=== PATIENT | female | born 1990 | race Caucasian/White ===

== ENCOUNTER 2019-06-14 13:27 | Outpatient (CLI) | payer BC, SELFPAY ==
--- NOTE | 2019-06-14 13:44 | XR_ITS ---
WS: [id number] RIGHT HAND: 3 VIEW(S) TECHNIQUE: PA, oblique and lateral. HISTORY: Medial RIGHT hand pain. COMPARISON: 02/10/2010 No acute fracture or dislocation. No soft tissue or bone abnormality. XR/XR hand RT min 3V* [id number] IMPRESSION: Normal RIGHT hand.
== END 2019-06-14 13:28 | disposition home or self-care (01) ==
LOC: RADWPI 13:36
PROVIDERS: PCP Family Medicine; Visit Provider Family Medicine
DX: M79.641 Pain in right hand (principal)
CPT/HCPCS: 73130

== ENCOUNTER 2019-08-11 09:39 | Outpatient (CLI) | payer BC, SELFPAY ==
--- NOTE | 2019-08-11 09:47 | XR_ITS ---
WS: [id number] LEFT HIP HISTORY: LEFT HIP PAIN COMPARISON: None available. LEFT hip: No acute fracture or dislocation. No displacement. Soft tissues are normal. Visualized LEFT SI joint is normal. XR/XR hip LT 2-3V wo/w pel* [id number] IMPRESSION: 1. No hip fracture. 2. Normal LEFT hip.
--- NOTE | 2019-08-11 09:47 | XR_ITS ---
WS: [id number] RIGHT ELBOW: 2 VIEW(S) TECHNIQUE: AP and lateral. HISTORY: ELBOW PAIN, RIGHT COMPARISON: None available. No acute fractures or dislocation. No joint effusion. No soft tissue abnormality. XR/XR elbow RT 2V [id number] IMPRESSION: Normal RIGHT elbow.
== END 2019-08-11 09:40 | disposition home or self-care (01) ==
PROVIDERS: Family Provider Family Medicine; PCP Family Medicine; Visit Provider Family Medicine
DX: M25.552 Pain in left hip (principal); M25.521 Pain in right elbow
CPT/HCPCS: 73070; 73502

== ENCOUNTER → 2019-08-24 10:01 | Outpatient (BNVA) | payer BC, SELFPAY | PROVIDERS: Family Provider Family Medicine; PCP Family Medicine; Visit Provider Obstetrics & Gynecology | DX: Z12.4 Encounter for screening for malignant neoplasm of cervix (principal) | CPT/HCPCS: 88175 ==

== ENCOUNTER 2019-08-30 09:33 | Outpatient (RCR) | payer BC, SELFPAY | END 2019-09-06 23:59 | disposition home or self-care (01) | LOC: SPT 09:33 | PROVIDERS: PCP Family Medicine; Visit Provider Family Medicine | DX: M25.552 Pain in left hip (principal); M25.521 Pain in right elbow | CPT/HCPCS: 97033; 97110; 97162 ==

== ENCOUNTER 2019-09-07 06:00 | Outpatient (RCR) | payer BC, SELFPAY | END 2019-09-28 11:21 | disposition home or self-care (01) | LOC: SPT 06:00 | PROVIDERS: PCP Family Medicine; Visit Provider Family Medicine | DX: M25.552 Pain in left hip (principal); M25.521 Pain in right elbow | CPT/HCPCS: 97033; 97035; 97110; 97140 ==

== ENCOUNTER 2019-11-15 06:00 | Outpatient (RCR) | payer BC, SELFPAY | END 2019-12-07 23:59 | disposition home or self-care (01) | LOC: SPT 06:00 | PROVIDERS: PCP Family Medicine; Referring Provider Orthopaedic Surgery; Visit Provider Orthopaedic Surgery | DX: M76.32 Iliotibial band syndrome, left leg (principal); M70.62 Trochanteric bursitis, left hip; M25.552 Pain in left hip | CPT/HCPCS: 97032; 97033; 97110; 97140; 97161 ==

== ENCOUNTER 2020-01-02 06:00 | Outpatient (RCR) | payer BC, SELFPAY | END 2020-01-07 23:59 | disposition home or self-care (01) | LOC: SPT 06:00 | PROVIDERS: PCP Family Medicine; Referring Provider Orthopaedic Surgery; Visit Provider Orthopaedic Surgery | DX: M70.62 Trochanteric bursitis, left hip (principal); M76.32 Iliotibial band syndrome, left leg | CPT/HCPCS: 97110; 97161 ==

== ENCOUNTER 2020-01-17 10:00 | Outpatient (RCR) | payer OTHER, BC, SELFPAY | END 2020-01-18 10:00 | disposition home or self-care (01) | LOC: SPT 10:00 | PROVIDERS: PCP Family Medicine; Visit Provider Orthopaedic Surgery | DX: M70.62 Trochanteric bursitis, left hip (principal); M76.32 Iliotibial band syndrome, left leg | CPT/HCPCS: 97110 ==

== ENCOUNTER 2020-06-09 20:49 | Emergency (ER) | payer BC, SELFPAY ==
[2020-06-09 21:05] VITALS: BP 154/101; PULSE 69; RESP 24; TEMP 36.7; O2SAT 100; BMI 22.4
--- NOTE | 2020-06-09 23:59 | XRR_ITS ---
PROCEDURE INFORMATION: Exam: XR Chest Exam date and time: 06/09/2020 12:04 AM Age: 30 years old Clinical indication: Patient HX: Central chest pain with radiation to left arm; Additional info: Cp TECHNIQUE: Imaging protocol: XR of the chest Views: 1 view. COMPARISON: CR Chest 1 [place] [id number] 02/23/2019 7:14 PM FINDINGS: Lungs: Unremarkable. No consolidation. Pleural spaces: Unremarkable. No pleural effusion. No pneumothorax. Heart/Mediastinum: Unremarkable. No cardiomegaly. Bones/joints: Unremarkable. XR/XR chest 1V portable [id number] IMPRESSION: Lungs are clear
--- NOTE | 2020-06-09 23:59 | ECG_ITS ---
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 Measurements Intervals [place] Rate: 73 P: 43 AL: 186 QRS: 48 QRSD: 85 T: 46 QT: 393 QTc: 435 Interpretive Statements SINUS RHYTHM POSSIBLE RIGHT VENTRICULAR CONDUCTION DELAY [RSR (QR) IN V1/V2] No previous ECG available for comparison Electronically Signed On 06-10-2020 22:43:27 CDT by Macey Jauregui M.D. [email or web address]
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
--- NOTE | 2020-06-10 00:37 | PC.NURSE ---
EKG completed in triage and given to ED provider
[2020-06-10 00:40] VITALS: BP 144/90; PULSE 58; RESP 17; O2SAT 99
[2020-06-10] MEDS: lidocaine 2% viscous 15 ML, aluminum-mag hydrox-simethicon 30 ML, sucralfate oral liq 1 GM PO (00:41)
[2020-06-10 01:00] LABS: Basophils # 0.1 10^3/uL (0.0-0.1); Basophils % 0.6 %; Eosinophils # 0.5 10^3/uL (0.0-0.8); Eosinophils % 5.3 %; HCG, Serum Qual Negative (Negative); Hematocrit 43.5 % (37.0-47.0); Hemoglobin 14.2 g/dL (11.5-15.3); Lymphocytes # 3.3 10^3/uL (0.8-4.8); Lymphocytes % 38.6 %; Mean Corpuscular HGB Conc 32.6 g/dL (30.0-36.0); Mean Corpuscular Hemoglobin 27.8 pg (28.0-34.0); Mean Corpuscular Volume 85.3 fL (81-99); Mean Platelet Volume 10.5 fL (7.4-10.4); Monocytes # 0.7 10^3/uL (0.2-0.9); Neutrophils # 4.06 10^3/uL (1.8-7.7); Neutrophils % 47.3 %; Nucleated Red Blood Cells % 0 %; Platelet Count 291 10^3/cmm (130-400); Red Cell Distribution Width 11.9 % (12.1-15.1); White Blood Count 8.6 10^3/uL (4.0-10.0)
[2020-06-10 01:06] LABS: Troponin(5th) Baseline 6 ng/L (0-10)
[2020-06-10 01:13] LABS: Alanine Aminotransferase 14 U/L (0-33); Albumin Level 4.7 g/dL (3.5-5.2); Alkaline Phosphatase 53 IU/L (35-105); Anion Gap 12.4 (5-19); Aspartate Amino Transferase 18 U/L (0-32); Blood Urea Nitrogen 14 mg/dL (6-20); Calcium 9.7 mg/dL (8.5-10.5); Carbon Dioxide 26 mmol/L (22-29); Chloride 105 mmol/L (98-107); Globulin 2.3 g/dL (1.3-4.6); Glomerular Filtration Rate 118.2 mL/min (90-130); Glucose 88 mg/dL (65-115); NT Pro B Type Natriuretic Pept 74 pg/mL (0-125); Osmolality Calculated 288 mOsm/kg (285-295); Potassium 4.4 mmol/L (3.5-5.1); Sodium 139 mmol/L (136-145); Total Bilirubin 0.2 mg/dL (0.15-1.2)
[2020-06-10 01:32] LABS: D Dimer 0.32 ug/mIFEU (0-0.59)
[2020-06-10] MEDS: LORazepam 2 mg/mL INJ 1 mL 1 MG IVP (01:43)
[2020-06-10 01:44] VITALS: BP 101/67; PULSE 61; RESP 20; O2SAT 99
[2020-06-10 02:34] VITALS: BP 104/63; PULSE 74; RESP 17; O2SAT 98
== END 2020-06-10 02:34 | disposition home or self-care (01) ==
PROVIDERS: Emergency Medicine; Emergency Provider Physician Assistant; PCP Family Medicine
DX: R07.89 Other chest pain (principal); Z87.891 Personal history of nicotine dependence
CPT/HCPCS: 71045; 80053; 83880; 84484; 84703; 85025; 85378; 93005; 96374; 99284; J2060

== ENCOUNTER 2020-08-24 09:57 | Outpatient (CLI) | payer OTHER, BC, SELFPAY ==
--- NOTE | 2020-08-24 10:15 | USCV_ITS ---
June Age: 30 Gender: F : 1990 Exam Date: 08/24/2020 10:22 Ordering Phys: Renae Rodriguez MD ([email or web address]) Technologist: Jaron Corona Exam Location: [facility] [place] Indication: TACHYCARDIA, CHEST PAIN BP: 138 / 68 HR: 62 Rhythm: Sinus Technical Quality: Good MEASUREMENTS (Male / Female) Normal Values 2D ECHO LV Diastolic Diameter PLAX 4.4 cm 4.2 - 5.9 / 3.9 - 5.3 cm LV Systolic Diameter PLAX 2.8 cm IVS Diastolic Thickness 0.7 cm 0.6 - 1.0 / 0.6 - 0.9 cm IVS Systolic Thickness 1.1 cm LVPW Diastolic Thickness 0.8 cm 0.6 - 1.0 / 0.6 - 0.9 cm LVPW Systolic Thickness 1.1 cm LVOT Diameter 1.9 cm LV Ejection Fraction 2D Teich 67.3 % LV Ejection Fraction MOD 2C 74.5 % LV Ejection Fraction 2C AL 74.4 % LA Diameter 2.8 cm LA Width 3.6 cm LA Height 4.2 cm RA Width 3.4 cm RA Height 4.3 cm DOPPLER AV Peak Velocity 150.0 cm/s LVOT Peak Velocity 97.0 cm/s AV Area Cont Eq vti 1.8 cm squared AV Area Cont Eq pk 1.8 cm squared MV Area PHT 5.0 cm squared Mitral E to A Ratio 2.1 MV E' Velocity 61.5 cm/s Mitral E to MV E' Ratio 5.4 Mitral E to LV E' Lateral Ratio 4.3 Mitral E to LV E' Septal Ratio 7.2 TR Peak Velocity 185.7 cm/s TR Peak Gradient 13.8 mmHg TV Peak E Velocity 108.0 cm/s Right Atrial Pressure 3.0 mmHg Pulmonary Artery Systolic Pressu 16.8 mmHg FINDINGS Left Ventricle Normal left ventricular size, systolic function and wall thickness, with no regional wall motion abnormalities. Left ventricular ejection fraction is estimated at 60 %. Normal diastolic function. Right Ventricle Normal right ventricular size and systolic function. Right ventricular systolic pressure 16.8 mmHg. Right Atrium Normal right atrial size. Left Atrium Normal left atrial size. Mitral Valve Structurally normal mitral valve. Trace mitral valve regurgitation. Aortic Valve Structurally normal trileaflet aortic valve. No aortic valve stenosis. No aortic valve regurgitation. Tricuspid Valve Structurally normal tricuspid valve. No tricuspid valve stenosis. Trace tricuspid valve regurgitation. Pulmonic Valve Pulmonic valve not well visualized. No pulmonary valve stenosis. Pericardium No pericardial effusion. Aorta Normal-sized inferior vena cava with normal respiratory variation. CONCLUSIONS 1. Normal left ventricular size, systolic function and wall thickness, with no regional wall motion abnormalities. Left ventricular ejection fraction is estimated at 60 %. Normal diastolic function. 2. Normal right ventricular size and systolic function. 3. Normal pulmonary artery pressure. 4. No significant valvular abnormality. 5. No pericardial effusion. 6. No prior similar studies to compare. Renae Rodriguez MD (Electronically Signed) Final Date: 27 August 2020 14:58 S
== END 2020-08-24 09:58 | disposition home or self-care (01) ==
LOC: RAD 10:01
PROVIDERS: PCP Family Medicine; Visit Provider Internal Medicine Cardiovascular Disease
DX: R55 Syncope and collapse (principal); R00.0 Tachycardia, unspecified; R07.9 Chest pain, unspecified
CPT/HCPCS: 93306

== ENCOUNTER 2021-02-20 12:42 | Emergency (ER) | payer OTHER, BC, SELFPAY ==
[2021-02-20 13:09] VITALS: BP 131/84; PULSE 75; RESP 18; TEMP 36.8; O2SAT 99; BMI 25.4
--- NOTE | 2021-02-20 13:15 | ECG_ITS ---
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 Measurements Intervals [place] Rate: 73 P: 45 MS: 186 QRS: 31 QRSD: 89 T: 17 QT: 384 QTc: 426 Interpretive Statements SINUS RHYTHM WITH SINUS ARRHYTHMIA POSSIBLE RIGHT VENTRICULAR CONDUCTION DELAY [RSR (QR) IN V1/V2] Compared to ECG 06/09/2020 21:14:32 No significant changes Electronically Signed On 02-20-2021 22:13:18 [employer] by Macey Jauregui M.D. [email or web address]
== END 2021-02-20 15:32 | disposition left against medical advice (07) ==
LOC: ER 13:06
PROVIDERS: Emergency Provider Family Medicine; PCP Family Medicine
DX: Z53.21 Procedure and treatment not carried out due to patient leaving prior to being seen by health care provider (principal)
CPT/HCPCS: 93005; 99283

== ENCOUNTER 2021-06-12 10:04 | Outpatient (CLI) | payer OTHER, BC, SELFPAY ==
--- NOTE | 2021-06-12 10:15 | XR_ITS ---
WS: [id number] XR chest 2V* [id number] REASON FOR EXAM: BRONCHITIS, ACUTE FINDINGS: Chest is unchanged compared to 06/10/2020. The heart and mediastinum are within normal limits. Calcified granulomatous disease is present both hemithoraces. No acute pulmonary parenchymal or pleural abnormality is identified. XR/XR chest 2V* [id number] IMPRESSION: No acute abnormality identified.
== END 2021-06-12 10:05 | disposition home or self-care (01) ==
PROVIDERS: PCP Family Medicine; Visit Provider Family Medicine
DX: J20.9 Acute bronchitis, unspecified (principal)
CPT/HCPCS: 71046

== ENCOUNTER 2021-10-14 02:36 | Emergency (ER) | payer OTHER, BC, SELFPAY ==
[2021-10-14 02:41] VITALS: BP 119/76; PULSE 98; RESP 18; TEMP 36.7; O2SAT 100; BMI 27.3
--- NOTE | 2021-10-14 02:44 | XRR_ITS ---
PROCEDURE INFORMATION: Exam: XR Chest Exam date and time: 10/14/2021 3:25 AM Age: 31 years old Clinical indication: Shortness of breath; Additional info: SOB TECHNIQUE: Imaging protocol: Radiologic exam of the chest. Views: 1 view. COMPARISON: CR XR chest 2V* [id number] 06/12/2021 10:17 AM FINDINGS: Lungs: There are normal lung volumes without interstitial or airspace opacities. Pleural spaces: There are no pleural effusions or pneumothorax. Heart/Mediastinum: The heart size is normal. The mediastinal contour is normal. The trachea is in the midline. Bones/joints: No acute abnormalities. XR/XR chest 1V portable [id number] IMPRESSION: No chest radiographic evidence of acute cardiopulmonary disease.
[2021-10-14] MEDS: sodium chloride 0.9% 1,000 ML 999 ML IV (02:50)
[2021-10-14] MEDS: ondansetron 2 mg/ML SDV 2 mL 4 MG IVP (02:52)
[2021-10-14 02:54] LABS: Basophils % 0.4 %; Eosinophils # 0.5 10^3/uL (0.0-0.8); Eosinophils % 4.6 %; Hemoglobin 14.2 g/dL (11.5-15.3); Lymphocytes % 38.1 %; Mean Corpuscular Hemoglobin 27.6 pg (28.0-34.0); Mean Corpuscular Volume 83.5 fl (81-99); Monocytes # 0.9 10^3/uL (0.2-0.9); Monocytes % 8.1 %; Neutrophils % 48.3 %; Nucleated Red Blood Cells % 0 %; Platelet Count 312 10^3/cmm (130-400); Red Blood Count 5.15 10^6/uL (4.1-5.3); Red Cell Distribution Width 11.8 % (12.1-15.1); White Blood Count 10.6 10^3/uL (4.0-10.0)
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
[2021-10-14 03:00] VITALS: BP 110/68; PULSE 89; O2SAT 100
[2021-10-14 03:18] LABS: Alanine Aminotransferase 26 U/L (0-33); Albumin Level 4.6 g/dL (3.5-5.2); Alkaline Phosphatase 75 IU/L (35-105); Anion Gap 17.7 (5-19); Aspartate Amino Transferase 23 U/L (0-32); Blood Urea Nitrogen 11 mg/dL (6-20); Calcium 9.1 mg/dL (8.5-10.5); Carbon Dioxide 25 mmol/L (22-29); Chloride 103 mmol/L (98-107); Glomerular Filtration Rate 98.3 mL/min (90-130); Glucose 99 mg/dL (65-115); Lipase 32 U/L (13-60); Osmolality Calculated 293 mOsm/kg (285-295); Potassium 3.7 mmol/L (3.5-5.1); Sodium 142 mmol/L (136-145); Total Bilirubin 0.2 mg/dL (0.15-1.2); Total Protein 7.6 g/dL (6.6-8.7)
--- NOTE | 2021-10-14 03:20 | ECG_ITS ---
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 Measurements Intervals [place] Rate: 96 P: 66 WI: 172 QRS: 79 QRSD: 87 T: 48 QT: 379 QTc: 480 Interpretive Statements SINUS RHYTHM INTERPRETATION BASED ON A DEFAULT AGE OF 40 YEARS Compared to ECG 02/20/2021 13:20:21 Sinus arrhythmia no longer present Electronically Signed On 10-15-2021 0:40:05 CDT by Macey Jauregui M.D. [id number]
[2021-10-14 03:29] LABS: HCG, Serum Qual Negative (Negative)
[2021-10-14 04:06] VITALS: BP 122/65; PULSE 89; RESP 20; O2SAT 99
[2021-10-14 04:24] LABS: Alcohol Level 89 mg/dL (0-10)
[2021-10-14 04:41] VITALS: BP 115/60; PULSE 85; RESP 16; O2SAT 99
== END 2021-10-14 04:40 | disposition home or self-care (01) ==
PROVIDERS: Emergency Provider Emergency Medicine; PCP Family Medicine
DX: F10.129 Alcohol abuse with intoxication, unspecified (principal); Y90.4 Blood alcohol level of 80-99 mg/100 ml; R11.11 Vomiting without nausea; Z87.891 Personal history of nicotine dependence
CPT/HCPCS: 71045; 80053; 80307; 83690; 84703; 85025; 93005; 96361; 96374; 99285; J2405; J7030

== ENCOUNTER 2022-04-22 13:16 | Outpatient (CLI) | payer BC, OTHER, SELFPAY ==
--- NOTE | 2022-04-22 13:36 | XRR_ITS ---
PROCEDURE INFORMATION: Exam: XR Left Clavicle, Complete Exam date and time: 04/22/2022 1:46 PM Age: 32 years old Clinical indication: Arm, lower and arm, upper; Left; Shoulder; Patient HX: Lt clavicle pain for 3 days, no known trama, swelling down to hands; Additional info: Left clavicle pain and left arm swelling TECHNIQUE: Imaging protocol: Radiologic exam of the Left clavicle. Complete exam. Views: Any number of views. COMPARISON: CR (CHEST, ) 10/14/2021 3:25 AM FINDINGS: Bones/joints: Normal. Soft tissues: Normal. XR/[place] [id number] IMPRESSION: No acute findings.
== END 2022-04-22 13:17 | disposition home or self-care (01) ==
PROVIDERS: PCP Family Medicine; Visit Provider Family Medicine
DX: M25.512 Pain in left shoulder (principal)
CPT/HCPCS: 73000

== ENCOUNTER 2022-08-11 11:16 | Outpatient (CLI) | payer OTHER, BC, SELFPAY ==
[2022-08-11 11:25] VITALS: BP 128/72; PULSE 54; RESP 16; TEMP 36.7; O2SAT 98; BMI 28.1
[2022-08-11] MEDS: cephALEXin 500 mg Capsule 2000 MG PO (11:30)
[2022-08-11 12:03] VITALS: PULSE 61; RESP 19; O2SAT 97
[2022-08-11] MEDS: lidocaine-epi 1% 20 mL INJ INJECTION (12:13)
[2022-08-11 12:30] VITALS: BP 128/92; PULSE 74; RESP 24; O2SAT 99
--- NOTE | 2022-08-11 12:36 | W.PM.OPSUD ---
Surgery/Procedure H&P Update DATE OF PROCEDURE: August 11, 2022 DATE H&P PERFORMED: 07/24/22 PREOP DIAGNOSIS: Recurrent near syncope, palpitations PRIMARY INDICATION FOR PROCEDURE: Recurrent near syncope, palpitations PLANNED PROCEDURE: Operation Date: 08/11/22 11:30 Proposed Procedures p Loop Recorder Insertion [id number],[id number](Not Applicable) - Renae Rodriguez MD PATIENT REASSESSED PRIOR TO SEDATION, WITH NO CHANGE NOTED: Yes PHYSICAL EXAM: alert, oriented x 3, clear to auscultation bilaterally, regular rate & rhythm and operative site marked AIRWAY EVAL/ANESTHESIA PLAN: normal airway, Local Anesthesia, Risks, benefits & alternatives of sedation and/or procedure discussed and Patient agrees to continue as planned
--- NOTE | 2022-08-11 12:36 | PM.OP ---
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 She had boat person and tilt table test that was non diagnostic. She was evaluated by EP and ILR implantation was recommended. Procedure: Patient was identified and procedure was explained to the patient in detail. Risks and benefits of the procedure were discussed with the patient. Informed consent was obtained. Patient was prepped and draped with STERILE drapes with all aseptic precautions. The patient was anesthetized with 18 mL of lidocaine. A small dakota in the skin was made and REVEAL LINQ II [id number], serial number [[id number]] was implanted. Blood loss was less than 10 mL. The skin was secured with Steri-Strips and Tegaderm was applied on top. R-wave amplitude of 0.35 mV was detected. Sensitivity set at 0.035 mV with tachycardia set at [200] bpm and bradycardia detection set at 30 bpm. Programmed to detect A. fib greater than equal to 10. Patient tolerated the procedure pretty well.
[2022-08-11 13:00] VITALS: BP 128/92; PULSE 74; RESP 14; O2SAT 97
--- NOTE | 2022-08-11 13:09 | PC.NURSE ---
1300: Discharge orders received. Insertion site to patients left upper chest clean, dry, et intact. No drainage or hematoma. Vitals WDL. Patient educated over site care and possible s/s of infection. Patient verbalized understanding of all teaching. Patient discharge to home with spouse via private vehicle.
== END 2022-08-11 11:17 | disposition home or self-care (01) ==
PROVIDERS: Family Provider Internal Medicine Clinical Cardiac Electrophysiology; PCP Family Medicine; Visit Provider Internal Medicine Cardiovascular Disease
PROC: (CPT 33285; principal; 2022-08-11 11:30)
DX: R00.2 Palpitations (principal); R55 Syncope and collapse
CPT/HCPCS: 33285; C1764; C1769

== ENCOUNTER → 2023-01-06 09:43 | Outpatient (BNVA) | payer OTHER, BC, SELFPAY | PROVIDERS: Family Provider Internal Medicine Clinical Cardiac Electrophysiology; PCP Family Medicine; Visit Provider Clinical Nurse Specialist Adult Health | DX: J20.9 Acute bronchitis, unspecified (principal) | CPT/HCPCS: 87400; 87426 ==

== ENCOUNTER → 2023-03-06 11:23 | Outpatient (BNVA) | payer OTHER, BC, SELFPAY | PROVIDERS: Family Provider Internal Medicine Clinical Cardiac Electrophysiology; PCP Family Medicine; Visit Provider Nurse Practitioner | DX: J06.9 Acute upper respiratory infection, unspecified (principal); J01.90 Acute sinusitis, unspecified; J01.40 Acute pansinusitis, unspecified | CPT/HCPCS: 87400 ==

== ENCOUNTER → 2023-12-24 14:45 | Outpatient (BNVA) | payer OTHER, BC, SELFPAY | PROVIDERS: Family Provider Internal Medicine Clinical Cardiac Electrophysiology; PCP Family Medicine; Visit Provider Family Medicine | DX: J20.6 Acute bronchitis due to rhinovirus (principal) | CPT/HCPCS: 87426 ==

== ENCOUNTER 2024-06-23 09:30 | Outpatient (CLI) | payer OTHER, BC, SELFPAY ==
--- NOTE | 2024-06-23 09:33 | XR_ITS ---
WS: [id number] views of the left second finger, 06/23/2024 Clinical Data: finger pain Comparison: None. Findings: No fractures or dislocations are seen. The soft tissues are normal. The joint spaces are not remarkable. XR/XR finger LT min 2V [id number] Impression: Negative left second finger.
== END 2024-06-23 09:31 | disposition home or self-care (01) ==
LOC: RAD 09:32
PROVIDERS: Family Provider Internal Medicine Clinical Cardiac Electrophysiology; PCP Family Medicine; Visit Provider Family Medicine
DX: M79.645 Pain in left finger(s) (principal)
CPT/HCPCS: 73140

== ENCOUNTER → 2024-06-26 10:03 | Outpatient (BNVA) | payer OTHER, BC, SELFPAY | PROVIDERS: Family Provider Internal Medicine Clinical Cardiac Electrophysiology; PCP Family Medicine | DX: J02.9 Acute pharyngitis, unspecified (principal); J06.9 Acute upper respiratory infection, unspecified | CPT/HCPCS: 87071; 87880 ==